=== PATIENT | male | born 1985 | race Caucasian/White ===

== ENCOUNTER 2020-01-29 22:08 | Inpatient (IN) | payer BC, OTHER ==
[2020-01-29] MEDS ORDERED: SODIUM CHLORIDE IV ONE (22:45)
--- NOTE | 2020-01-29 22:48 | PDOC ---
History of Present Illness - General Chief Complaint: Pain Stated Complaint: ABD PAIN Time Seen by Provider: 01/29/20 22:36 History Source: Patient Exam Limitations: No Limitations - History of Present Illness Initial Comments: 01/29/20 22:56 34y M with no significant PMH presenting to ED with complaints of LLQ abdominal pain and fever that started today at 5am. Pt states the pain is constant but there is intermittent stabbing sensation. It does not radiate but he is now feel ing some dull aches in the RLQ. He went to urgent care and was told he might have diverticulitis. He denies diarrhea, n/v, cough, congestion, back pain, hematuria, testicular pain, testicular swelling, sick contacts, abdominal surgeries, distension. He took Advil for the fever but it did not help with the pain PMD: PMH: none PSH: none Meds: none Allergies: Bactrim Social: smokes 1/2ppd, occasional alcohol use Past History - Past Medical History Allergies/Adverse Reactions: Allergies Allergy/AdvReac Type Severity Reaction Status Date / Time sulfamethoxazole AdvReac Verified 01/30/20 01:18 [From Bactrim] trimethoprim [From Bactrim] AdvReac Verified 01/30/20 01:18 Home Medications: Ambulatory Orders Albuterol Sulfate Inhaler - [Ventolin HFA Inhaler -] 1 - 2 inh PO Q4H PRN #1 inhaler 10/06/14 Guaifenesin AC [Robitussin AC] 10 ml PO Q8H PRN #4 oz 10/06/14 Loratadine [Claritin -] 10 mg PO DAILY 10/06/14 Methylprednisolone [Medrol Dose Lei] 4 mg PO ASDIR #21 tablet 10/06/14 COPD: No - Psycho Social/Smoking Cessation Hx Smoking History: Current every day smoker Have you smoked in the past 12 months: Yes Number of Cigarettes Smoked Daily: 10 Information on smoking cessation initiated: No Hx Alcohol Use: No Drug/Substance Use Hx: No Review of Systems - Review of Systems Constitutional: Yes: Chills, Fever HEENTM: No: Symptoms Reported Respiratory: No: Symptoms reported Cardiac (ROS): No: Symptoms Reported ABD/GI: Yes: See HPI : No: Symptoms Reported Musculoskeletal: No: Symptoms Reported Integumentary: No: Symptoms Reported Neurological: No: Symptoms reported *Physical Exam - Vital Signs Last Vital Signs Temp Pulse Resp BP Pulse Ox 102.0 F H 141 H 22 H 150/72 98 01/29/20 22:25 01/29/20 22:25 01/29/20 22:25 01/29/20 22:25 01/29/20 22:25 - Physical Exam General Appearance: Yes: Appropriately Dressed, Obese. No: Apparent Distress HEENT: positive: EOMI, ROMAIN Neck: positive: Trachea midline, Supple Respiratory/Chest: positive: Lungs Clear, Normal Breath Sounds. negative: Crackles, Rales, Rhonchi, Stridor, Wheezing Cardiovascular: positive: Regular Rhythm, Regular Rate, S1, S2. negative: Edema, JVD, Murmur Vascular Pulses: Dorsalis-Pedis (R): 2+, Doralis-Pedis (L): 2+ Gastrointestinal/Abdominal: positive: Normal Bowel Sounds, Soft, Rebound, Tenderness (LLQ). negative: Protuberent, Distended, Guarding Male Genitalia: positive: normal genitalia. negative: testicular tenderness, testicular mass Musculoskeletal: negative: CVA Tenderness Extremity: positive: Normal Capillary Refill Integumentary: positive: Normal Color, Dry, Warm Neurologic: positive: community leader II-XII NML intact, Fully Oriented, Alert, Normal Mood/Affect, Normal Response, Motor Strength 5/ ED Treatment Course - LABORATORY CBC & Chemistry Diagram: 01/29/20 23:03 01/29/20 23:03 - RADIOLOGY Radiology Studies Ordered: Category Date Time Status CHEST X-RAY PORTABLE* [RAD] Stat Radiology 01/29/20 22:45 Ordered Medical Decision Making - Medical Decision Making 01/30/20 01:18 34y M presenting to ED for abdominal pain and fever. tachycardic and febrile. llq tender. ddx includes colitis, diverticulitis, appendicitis, abscess, torsion, epididym itis/orchitis sepsis w/u, lipase, ekg, cxr, CTAP fluids, ofirmev. labs show leukocytosis with shift. normal chemistries. CTAP: Lung bases are clear. The visualized cardiac chambers are normal size and configuration. Normal liver, gallbladder, pancreas, spleen, adrenal glands and kidneys. The stomach and small bowel are normal. There is moderate focal inflammation of the sigmoid colon with associated diverticulosis, consistent with acute diverticulitis. No bowel obstruction, abscess or free air. There is no aortic aneurysm. There is no significant retroperitoneal lymphadenopathy. Tiny fat-containing umbilical hernia is noted. The appendix is normal. The urinary bladder and prostate gland are normal. No pelvic free fluid is identified. There is no significant pelvic lymphadenopathy. will give zosyn and flagyl. given systemic symptoms, will admit for diverticulitis. Discharge - Discharge Information Problems reviewed: Yes Clinical Impression/Diagnosis: Diverticulitis Fever Qualifiers: Fever type: unspecified Qualified Code(s): R50.9 - Fever, unspecified Condition: Stable - Admission Yes - Follow up/Referral Referrals: Garth Bansal MD [Primary Care Provider] - - Patient Discharge Instructions - Post Discharge Activity
[2020-01-29] MEDS ORDERED: ACETAMINOPHEN 1000 MG/100 ML VIAL (NON FORMULARY) IVPB ONE (22:49)
[2020-01-29] MEDS ORDERED: ACETAMINOPHEN INJECTION 100 ML IVPB ONE (23:13)
[2020-01-29] MEDS ORDERED: PIPERACILLIN/TAZOB 3.375 GM 3.375 GM in DEXTROSE 5%-WATER - 50 ML IVPB ONE (23:24)
[2020-01-29 23:27] LABS: BASO % 0.4 % (0-2.0); EOS % 0.2 % (0-4.5); HEMOGLOBIN 16.3 GM/dL (11.7-16.9); LYMPH % 8.6 % (8-40); MCHC 33.2 g/dl (32.0-35.9); MEAN CELL VOLUME 90.2 fl (80-96); MEAN PLT VOLUME 7.8 fl (7.5-11.1); MONO % 6.9 % (3.8-10.2); NEUT % 83.9 % (42.8-82.8); PLATELET COUNT 431 K/MM3 (134-434); RBC 5.44 M/mm3 (4.00-5.60); RDW 13.4 % (11.9-15.9); WHITE BLOOD COUNT 18.5 K/mm3 (4.0-10.0)
[2020-01-29 23:33] LABS: INR 1.25 (0.83-1.09); PROTHROMBIN TIME (PATIENT) 14.8 SEC (9.7-13.0)
[2020-01-29 23:36] LABS: ACTIVATED PTT 35.2 SECONDS (25.2-36.5)
[2020-01-29 23:52] LABS: ALBUMIN 3.8 g/dl (3.4-5.0); BILIRUBIN,TOTAL 0.7 mg/dL (0.2-1); BLOOD UREA NITROGEN 12.6 mg/dL (7-18); CALCIUM 8.7 mg/dL (8.5-10.1); POTASSIUM 3.9 mmol/L (3.5-5.1); TOT PROT 7.4 g/dl (6.4-8.2)
--- NOTE | 2020-01-30 00:40 | PDOC ---
Documentation entered by Reena Almendarez SCRIBE, acting as scribe for Bella Guardado MD. Bella Guardado MD: This documentation has been prepared by the Erickson frausto Brenda, SCRIBE, under my direction and personally reviewed by me in its entirety. I confirm that the documentation accurately reflects all work, treatment, procedures, and medical decision making performed by me. Attending Attestation - Resident Resident Name: Amairani Zimmerman - ED Attending Attestation I have performed the following: I have examined & evaluated the patient, The case was reviewed & discussed with the resident, I agree w/resident's findings & plan, Exceptions are as noted - HPI HPI: 01/30/20 00:39 34-year-old male who states he has no significant past medical history presents with fever and left lower quadrant pain He denied any nausea or vomiting - Physicial Exam PE: 01/30/20 00:40 Well-nourished well-developed 34-year-old male presents with left lower quadrant pain head ncat neck supple lungs cta b/l cvs [id number] abd LLQ tenderness+++ skin warm and dry no cva tenderness neuro axox3,ambulatory - Medical Decision Making 01/30/20 00:46 ct scan abd/pel c/w acute diverticulitis imp diverticuitis admit for IV antibiotics 01/30/20 01:58
[2020-01-30 00:59] LABS: VENOUS PC02 28.4 mmHg (38-52); VENOUS PH 7.49 (7.31-7.41)
[2020-01-30] MEDS ORDERED: PIPERACILLIN/TAZOB 3.375 GM 3.375 GM/50 ML BAG IVPB ONE (02:08)
[2020-01-30] MEDS ORDERED: morphine CARPU-JECT 4 MG/1 ML DISP.SYRIN IVPUSH ONE (02:49)
[2020-01-30] MEDS ORDERED: morphine SULFATE 4 MG/ML VIAL ONE (02:58)
--- NOTE | 2020-01-30 03:45 | HP ---
CHIEF COMPLAINT: abdominal pain PCP: Dr. Weeks HISTORY OF PRESENT ILLNESS: This is a 34y/o M with no significant PMH presenting to the ED with complaints of LLQ abdominal pain and fever that started today at 5am. Pt states the pain is constant but there is intermittent stabbing sensa tion. It does not radiate but he is now feeling some dull aches in the LLQ. He initially attributed to muscle cramps from constipation and went to work. However, once he got to work the pain became unbearable prompting him to go an urgent care center. They told him to go to the ER and told him he may have an enflamed colon requiring cat scan. He denies diarrhea, n/v, cough, congestion, back pain, hematuria, testicular pain, testicular swelling, sick contacts, abdominal surgeries, distension, change in stool color, and no SOB. He took Advil for the fever but it did not help with the pain. ER course was notable for: (1) VBG- 7.49, 21 HCO3, 98%, CO2 28 (2) wbc- 18.5, 102 degree temp, HR-141 (3) CTAP: Lung bases are clear. The visualized cardiac chambers are normal size and configuration. Normal liver, gallbladder, pancreas, spleen, adrenal glands and kidneys. The stomach and small bowel are normal. There is moderate focal inflammation of the sigmoid colon with associated diverticulosis, consistent with acute diverticulitis. No bowel obstruction, abscess or free air. There is no aortic aneurysm. There is no significant retroperitoneal lymphadenopathy. Tiny fat-containing umbilical hernia is noted. The appendix is normal. The urinary bladder and prostate gland are normal. No pelvic free fluid is identified. There is no significant pelvic lymphadenopathy. Recent Travel: denies PAST SURGICAL HISTORY: sinus surgery, Social History: Smokin/2 ppd X 20 yrs Alcohol:occasional Drugs:denies Allergies sulfamethoxazole [From Bactrim] Adverse Reaction (Verified 01/30/20 01:18) trimethoprim [From Bactrim] Adverse Reaction (Verified 01/30/20 01:18) HOME MEDICATIONS: Home Medications Medication Instructions Recorded Albuterol Sulfate Inhaler - 1 - 2 inh PO Q4H PRN #1 inhaler 10/06/14 [Ventolin HFA Inhaler -] Guaifenesin AC [Robitussin AC] 10 ml PO Q8H PRN #4 oz 11/16/14 Loratadine [Claritin -] 10 mg PO DAILY 10/06/14 Methylprednisolone [Medrol Dose 4 mg PO ASDIR #21 tablet 10/06/14 Lei] REVIEW OF SYSTEMS Negative except above. PHYSICAL EXAMINATION Vital Signs - 24 hr 01/29/20 01/30/20 22:25 03:18 Temperature 102.0 F H 99.5 F Pulse Rate 141 H Pulse Rate [ 96 H Left] Respiratory 22 H 20 Rate Blood Pressure 150/72 Blood Pressure 95/53 L [Left] O2 Sat by Pulse 98 98 Oximetry (%) GENERAL: Awake, alert, and fully oriented, in no acute distress. LUNGS: Breath sounds equal, clear to auscultation bilaterally. No wheezes, and no crackles. HEART: Regular rate and rhythm, normal S1 and S2 without murmur, rub or gallop. ABDOMEN: Soft, diffusely tender, non-distended, normoactive bowel sounds, no guarding, no rebound, no masses. LOWER EXTREMITIES: 2+ pulses, warm, well-perfused. No calf tenderness. No peripheral edema. NEUROLOGICAL: Cranial nerves II-XII intact. Normal speech. Normal gait. Laboratory Results - last 24 hr 01/29/20 01/29/20 01/29/20 23:03 23:03 23:03 WBC 18.5 H RBC 5.44 Hgb 16.3 Hct 49.0 MCV 90.2 MCH 30.0 MCHC 33.2 RDW 13.4 Plt Count 431 MPV 7.8 Absolute Neuts (auto) 15.5 H Neutrophils % 83.9 H Lymphocytes % 8.6 Monocytes % 6.9 Eosinophils % 0.2 Basophils % 0.4 Nucleated RBC % 0 PT with INR 14.80 H INR 1.25 H PTT (Actin FS) 35.2 VBG pH POC VBG pCO2 POC VBG pO2 VBG HCO3 VBG O2 Sat ([place]) VBG Base Excess Sodium 137 Potassium 3.9 Chloride 102 Carbon Dioxide 26 Anion Gap 9 BUN 12.6 Creatinine 1.0 Est GFR (CKD-EPI)AfAm 114.11 Est GFR (CKD-EPI)NonAf 98.45 Random Glucose 101 Lactic Acid Calcium 8.7 Total Bilirubin 0.7 AST 15 ALT 37 Alkaline Phosphatase 94 Total Protein 7.4 Albumin 3.8 Lipase 169 01/29/20 01/30/20 23:03 00:37 WBC RBC Hgb Hct MCV MCH MCHC RDW Plt Count MPV Absolute Neuts (auto) Neutrophils % Lymphocytes % Monocytes % Eosinophils % Basophils % Nucleated RBC % PT with INR INR PTT (Actin FS) VBG pH 7.49 H POC VBG pCO2 28.4 L POC VBG pO2 177 H VBG HCO3 21.6 L VBG O2 Sat ([place]) 98.4 H VBG Base Excess -0.2 Sodium Potassium Chloride Carbon Dioxide Anion Gap BUN Creatinine Est GFR (CKD-EPI)AfAm Est GFR (CKD-EPI)NonAf Random Glucose Lactic Acid 1.0 Calcium Total Bilirubin AST ALT Alkaline Phosphatase Total Protein Albumin Lipase ASSESSMENT/PLAN: This is a 34y/o M with no significant PMH presenting to the ED with complaints of LLQ abdominal pain and fever that started today at 5am. Pt states the pain is constant but there is intermittent stabbing sensation. It does not radiate but he is now feeling some dull aches in the LLQ. #Acute uncomplicated Diverticulitis - CT showing CTAP: moderate focal inflammation of the sigmoid colon with associated diverticulosis, consistent with acute diverticulitis. No bowel obstruction, abscess or free air. There is no aortic aneurysm. There is no significant retroperitoneal lymphadenopathy. Tiny fat-containing umbilical hernia is noted. - zosyn and flagyl given in ED. - sepsis given high fever 102 with tachycardia to 141, 18 wbc - will switch to levaquin 750 daily and flagyl 500 Q8 - NPO, IV NS 100/hr - LA- 1.0 - Blood cultures ordered DVT ppx: 40 Lovenox daily Visit type - Emergency Visit Emergency Visit: Yes ED Registration Date: 01/30/20 Care time: The patient presented to the Emergency Department on the above date and was hospitalized for further evaluation of their emergent condition. - New Patient This patient is new to me today: Yes Date on this admission: 01/31/20 - Critical Care Critical Care patient: No ATTENDING PHYSICIAN STATEMENT I saw and evaluated the patient. I reviewed the resident's note and discussed the case with the resident. I agree with the resident's findings and plan as documented. SUBJECTIVE: OBJECTIVE: ASSESSMENT AND PLAN:
--- NOTE | 2020-01-30 04:40 | PN ---
Teaching Attending Note Name of Resident: Todd Lou ATTENDING PHYSICIAN STATEMENT I saw and evaluated the patient. I reviewed the resident's note and discussed the case with the resident. I agree with the resident's findings and plan as documented. SUBJECTIVE: 34y man Smoker With no significant medical history presents complaining of left lower quadrant abdominal pain that started on 01/29/2020 at 5 AM. Patient's constant with intermittent stabbing sensation. Patient went to urgent care was referred to the ER for further evaluation. Denied any cough diarrhea or sick contacts. No history of abdominal surgeries. OBJECTIVE: Last Vital Signs Temp Pulse Resp BP Pulse Ox 99.5 F 96 H 20 95/53 L 98 01/30/20 03:18 01/30/20 03:18 01/30/20 03:18 01/30/20 03:18 01/30/20 03:18 Physical exam showed an obese male not in acute distress, nontoxic-appearing head was atraumatic, neck was supple with no JVD. Cardiovascular exam was S1, S2 with regular rate and rhythm. Abdomen was tender in left lower quadrant. Bowel sounds were decreased. Lower extremities with no pedal edema. Abnormal Lab Results 01/29/20 01/29/20 01/30/20 23:03 23:03 00:37 WBC 18.5 H Absolute Neuts (auto) 15.5 H Neutrophils % 83.9 H PT with INR 14.80 H INR 1.25 H VBG pH 7.49 H POC VBG pCO2 28.4 L POC VBG pO2 177 H VBG HCO3 21.6 L VBG O2 Sat ([place]) 98.4 H Chest x-ray reviewed, appears unremarkable Abdomen and pelvis CT showed diverticulitis with no free air, abscess formation ASSESSMENT AND PLAN: 34-year-old male with sepsis secondary to diverticulitis. Leukocytosis, tachycardia. Lactate was noted to be normal. MedSurg Blood cultures x2 IV Fluid hydration Continue with Zosyn 3.375 IV every 6 hours Infectious disease consult Lactate Counseled on high-fiber diet Advise smoking cessation dietary consult for weight loss Would benefit from colonoscopy 6 weeks after completion of treatment with antibiotics DVT prophylaxis with heparin subcutaneously
[2020-01-30] MEDS ORDERED: PIPERACILLIN/TAZOB 3.375 GM 3.375 GM in DEXTROSE 5%-WATER - 50 ML IVPB SCH ×2 (05:45→10:00)
[2020-01-30] MEDS: SODIUM CHLORIDE 1,000 ML IV SCH ×3 (08:33→20:56)
[2020-01-30] MEDS ORDERED: DEXTROSE 5%-WATER - 50 ML IVPB ONE ×3 (09:08→20:46)
[2020-01-30] MEDS ORDERED: PIPERACILLIN/TAZOBACTAM 3.375 GM VIAL IVPB ONE ×3 (09:08→20:45)
[2020-01-30] MEDS: PIPERACILLIN/TAZOB 3.375 GM 3.375 GM in DEXTROSE 5%-WATER - 50 ML IVPB SCH ×3 (09:38→20:56)
[2020-01-30] MEDS: ENOXAPARIN NA (PORCINE) 40 MG/0.4 ML DISP.SYRIN SQ SCH (09:51)
[2020-01-30] MEDS: MORPHINE SULFATE 2 MG/ML VIAL IVPUSH PRN ×2 (09:58→16:53)
--- NOTE | 2020-01-30 10:14 | EKG ---
Test Reason : Blood Pressure : / mmHG Vent. Rate : 117 BPM Atrial Rate : 117 BPM P-R Int : 138 ms QRS Dur : 084 ms QT Int : 312 ms P-R-T Axes : 064 062 018 degrees QTc Int : 435 ms SINUS TACHYCARDIA OTHERWISE NORMAL ECG NO PREVIOUS ECGS AVAILABLE Confirmed by Kelby Sutton ([id number]) on 01/30/2020 10:13:32 AM Referred By: Confirmed By:Kelby Sutton
[2020-01-30 10:28] LABS: HEMATOCRIT 43.1 % (35.4-49); HEMOGLOBIN 14.6 GM/dL (11.7-16.9); MCH 30.7 pg (25.7-33.7); MCHC 33.9 g/dl (32.0-35.9); MEAN CELL VOLUME 90.5 fl (80-96); MEAN PLT VOLUME 7.9 fl (7.5-11.1); PLATELET COUNT 345 K/MM3 (134-434); RBC 4.76 M/mm3 (4.00-5.60); RDW 13.2 % (11.9-15.9); WHITE BLOOD COUNT 15.8 K/mm3 (4.0-10.0)
[2020-01-30 11:05] LABS: ALBUMIN 3.2 g/dl (3.4-5.0); BILIRUBIN,TOTAL 0.8 mg/dL (0.2-1); BLOOD UREA NITROGEN 9.6 mg/dL (7-18); CALCIUM 8.4 mg/dL (8.5-10.1); CREATININE 0.9 mg/dL (0.55-1.3); PHOSPHOROUS 1.7 mg/dL (2.5-4.9); POTASSIUM 4.3 mmol/L (3.5-5.1); TOT PROT 6.5 g/dl (6.4-8.2)
[2020-01-30 13:06] VITALS: BMI 32.8
--- NOTE | 2020-01-30 13:39 | PN ---
Progress Note, Physician Chief Complaint: pain LLQ, is slightly better, is still hurting, - Current Medication List Current Medications: Active Medications Enoxaparin Sodium (Lovenox -) 40 mg SQ DAILY ERVIN Last Admin: 01/30/20 09:51 Dose: 40 mg Documented by: Sodium Chloride (Normal Saline -) 1,000 mls @ 100 mls/hr IV ASDIR ERVIN Last Admin: 01/30/20 09:38 Dose: 100 mls/hr Documented by: Piperacillin Sod/Tazobactam (Sod 3.375 gm/ Dextrose) 50 mls @ 100 mls/hr IVPB Q6H-IV ERVIN; Protocol Stop: 01/30/20 21:29 Last Admin: 01/30/20 09:38 Dose: 100 mls/hr Documented by: Morphine Sulfate (Morphine Sulfate) 2 mg IVPUSH Q4H PRN PRN Reason: PAIN LEVEL 1-5 Last Admin: 01/30/20 09:58 Dose: 2 mg Documented by: - Objective Vital Signs: Vital Signs Temperature 99.1 F 01/30/20 13:14 Pulse Rate 112 H 01/30/20 13:14 Respiratory Rate 01/30/20 13:21 Blood Pressure 131/88 01/30/20 13:14 O2 Sat by Pulse Oximetry (%) 98 01/30/20 13:21 Constitutional: Yes: Well Nourished Eyes: Yes: Conjunctiva Clear, EOM Intact HENT: Yes: Atraumatic, Normocephalic Neck: Yes: Supple, Trachea Midline Cardiovascular: Yes: Regular Rate and Rhythm Respiratory: Yes: Regular, CTA Bilaterally Gastrointestinal: Yes: Normal Bowel Sounds, Soft, Other (LLQ tenderness,) Extremities: Yes: WNL Peripheral Pulses WNL: No ...Motor Strength: WNL Psychiatric: Yes: WNL Labs: CBC, BMP 01/30/20 09:25 01/30/20 09:25 INR, PTT INR 1.25 (0.83-1.09) H 01/29/20 23:03 - ....Imaging Cat Scan: Report Reviewed Impression/Plan Impression/Plan: This is a 34y/o M with no significant PMH presenting to the ED with complaints of LLQ abdominal pain and fever that started today at 5am. Pt states the pain is constant but there is intermittent stabbing sensation. It does not radiate but he is now feeling some dull aches in the LLQ. #Acute uncomplicated Diverticulitis - CT showing CTAP: moderate focal inflammation of the sigmoid colon with associated diverticulosis, consistent with acute diverticulitis. No bowel obstruction, abscess or free air. There is no aortic aneurysm. There is no significant retroperitoneal lymphadenopathy. Tiny fat-containing umbilical hernia is noted. contiue zosyn, \spoke with ID, and will continue zosyn for now, - sepsis given high fever 102 with tachycardia to 141, 18 wbc - NPO, IV NS 100/hr - LA- 1.0 sbc slightly improving, - called GI consult, DVT ppx: 40 Lovenox daily Visit type - Emergency Visit Emergency Visit: No - New Patient This patient is new to me today: Yes Date on this admission: 01/30/20 - Critical Care Critical Care patient: No - Discharge Referral Referred to [facility] Med P.C.: No
--- NOTE | 2020-01-30 14:15 | PN ---
Progress Note (short form) - Note Progress Note: ID consult dictated imp/reccd 34 yo man with acute diverticulitis no recent travel no recent antibiotics acute onset of abdominal pain LLQ with fever and sweats still with some LLQ pain on exam strong family history of diverticulitis no history of colon cancer +history of lung cancer and breast cancer +cigarette use continue zosyn GI evaluation smoking cessation Problem List - Problems (1) Diverticulitis Code(s): K57.92 - DVTRCLI OF INTEST, PART UNSP, W/O PERF OR ABSCESS W/O BLEED (2) Smoker Code(s): F17.200 - NICOTINE DEPENDENCE, UNSPECIFIED, UNCOMPLICATED
[2020-01-30] MEDS ORDERED: PNEUMOC 13-VAL CONJ-DIP CRM/PF 0.5 ML DISP.SYRIN IM ONE (15:28)
--- NOTE | 2020-01-30 16:08 | CON.GI ---
Consult Consult Specialty:: Gastroenterology Reason for Consultation:: Abdominal pain - History of Present Illness History of Present Illness: 34yo male with no prior medical history presenting with LLQ pain and fever x 1 day. Pt reported developing worsening LLQ pain yesterday morning, prompting urgent care evaluation. Pt also noted fever and chills therefore advised ED evaluation. Denies prior similar episodes and was feeling well prior. Reports regular formed daily bm, no blood. Denies nausea/vomiting. Denies NSAID use. No prior endoscopy. CT abd/pelvis was performed revealing acute diverticulitis at descending colon/sigmoid colon. Pt states he has multiple family members with episodes of diverticulitis including his mother, grandmother (paternal), and brother with episodes starting in his early 30s. No known family h/o colon ca. - History Source History Provided By: Patient, Medical Record - Alcohol/Substance Use Hx Alcohol Use: No - Smoking History Smoking history: Current every day smoker Have you smoked in the past 12 months: Yes Aproximately how many cigarettes per day: 10 Home Medications - Allergies Allergies/Adverse Reactions: Allergies Allergy/AdvReac Type Severity Reaction Status Date / Time sulfamethoxazole AdvReac Verified 01/30/20 01:18 [From Bactrim] trimethoprim [From Bactrim] AdvReac Verified 01/30/20 01:18 - Home Medications Home Medications: Ambulatory Orders Albuterol Sulfate Inhaler - [Ventolin HFA Inhaler -] 1 - 2 inh PO Q4H PRN #1 i nhaler 10/06/14 Review of Systems - Review of Systems Constitutional: reports: Chills Cardiovascular: reports: No Symptoms Respiratory: reports: No Symptoms Gastrointestinal: reports: Abdominal Pain Musculoskeletal: reports: No Symptoms Physical Exam-GI Vital Signs: Vital Signs Temperature 99.1 F 01/30/20 13:14 Pulse Rate 112 H 01/30/20 13:14 Respiratory Rate 20 01/30/20 13:21 Blood Pressure 131/88 01/30/20 13:14 O2 Sat by Pulse Oximetry (%) 98 01/30/20 13:21 Constitutional: Yes: Well Nourished, No Distress, Calm Cardiovascular: Yes: WNL, Regular Rate and Rhythm Respiratory: Yes: WNL, Regular, CTA Bilaterally ...Palpate: Yes: Other (Abd soft, tender on mild palpation at LLQ, non distended, slight guarding, no rebound, or rigidity) Labs: CBC, BMP 01/30/20 09:25 01/30/20 09:25 INR, PTT INR 1.25 (0.83-1.09) H 01/29/20 23:03 Imaging - Results Cat Scan: Report Reviewed, Image Reviewed Problem List - Problems (1) Diverticulitis Assessment/Plan: 34yo male with no prior medical history presenting with LLQ pain and fever x [address] abd/pelvis revealing acute uncomplicated diverticulitis at descending colon/sigmoid colon. First episode. Mild improvement noted today. -Recommend continue conservative measures, IVF, NPO for now -Continue IV antibiotics -Follow up cultures -If pt does not have continued improvement, or if persisting fever or wcc would recommend repeat contrast enhanced CT abd/pelvis r/o progression/fluid collections/abscess -Otherwise recommend close outpatient GI follow up for colonoscopy within 6 weeks. Code(s): K57.92 - DVTRCLI OF INTEST, PART UNSP, W/O PERF OR ABSCESS W/O BLEED
--- NOTE | 2020-01-30 20:25 | CONS ---
DATE OF CONSULTATION: DATE OF DICTATION: 01/30/2020 INFECTIOUS DISEASE CONSULTATION HISTORY OF PRESENT ILLNESS: This is a 34-year-old man admitted with acute onset of abdominal pain that started yesterday morning at 5 a.m. He developed left lower quadrant pain. He went to work, the pain worsened. He went home. He had fevers and chills. His urged him to go to the urgent care where they advised him ER evaluation. He was found to have acute diverticulitis. He denies diarrhea, nausea, vomiting. He does not take any medications. There is no history of any travel. He does not have any cough. He notes sweats but no chills with the fever. He has a strong family history of diverticulitis in his brother who is 37 who has already had several episodes with a perforation and his mother and grandmother. There is no family history of colon cancer. There is the lung cancer and breast cancer. He is followed by Dr. Bansal at [facility]. ALLERGIES: He is allergic to BACTRIM. PAST MEDICAL HISTORY: Notable for sinus surgery. At that time, he received BACTRIM as one of the medications they used to treat him, and he developed a high fever and rash. SOCIAL HISTORY: He smokes a half pack per day for 20 years, social alcohol. He is . 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 He is and he has 3 children. MEDICATION: His medications at home, he uses an inhaler p.r.n. REVIEW OF SYSTEMS: As per HPI. PHYSICAL EXAMINATION: Vital Signs: His T-max in the ER was 102, current temperature is 99.5, pulse of 118, blood pressure 128/75, respiratory rate 20, saturating 98%. HEENT: Normocephalic. Eyes are anicteric. Neck: Supple. Lungs: Clear to auscultation. Heart: Regular rate and rhythm. Abdomen: Soft. He has got positive bowel sounds. He has got left lower quadrant mid lower abdomen discomfort to palpation. Skin: He has no rashes. Extremities: Without edema. LABORATORY: His labs are notable for an admitting white count of 18.5, today is 15.8, hemoglobin is 14.6. Chemistries are notable for BUN and creatinine of 9 and 0.9. Blood cultures are pending. CAT scan reveals an acute sigmoid diverticulitis within descending colon as well as the sigmoid. There is no evidence at this time of any perforation. His chest x-ray is clear. IMPRESSION: In summary, this is a 34-year-old man with acute diverticulitis. Would continue piperacillin/tazobactam and intravenous fluids at this time. He is currently n.p.o. I would suggest a gastrointestinal evaluation and close clinical followup. Case was discussed with the hospitalist. NINOSKA BEAUCHAMP M.D. [id number]
[2020-01-31] MEDS ORDERED: DEXTROSE 5%-WATER - 50 ML IVPB ONE ×4 (01:51→21:04)
[2020-01-31] MEDS ORDERED: PIPERACILLIN/TAZOBACTAM 3.375 GM VIAL IVPB ONE ×4 (01:51→21:04)
[2020-01-31] MEDS: PIPERACILLIN/TAZOB 3.375 GM 3.375 GM in DEXTROSE 5%-WATER - 50 ML IVPB SCH ×4 (02:03→22:00)
[2020-01-31] MEDS: SODIUM CHLORIDE 1,000 ML IV SCH ×2 (07:15→15:06)
[2020-01-31 07:35] LABS: BASO % 0.6 % (0-2.0); HEMATOCRIT 40.4 % (35.4-49); HEMOGLOBIN 13.6 GM/dL (11.7-16.9); LYMPH % 13.8 % (8-40); MCH 30.3 pg (25.7-33.7); MCHC 33.6 g/dl (32.0-35.9); MEAN PLT VOLUME 7.6 fl (7.5-11.1); MONO % 8.8 % (3.8-10.2); NEUT % 75.8 % (42.8-82.8); PLATELET COUNT 297 K/MM3 (134-434); RBC 4.49 M/mm3 (4.00-5.60); RDW 12.9 % (11.9-15.9); WHITE BLOOD COUNT 13.1 K/mm3 (4.0-10.0)
[2020-01-31 08:14] LABS: ALBUMIN 2.9 g/dl (3.4-5.0); BLOOD UREA NITROGEN 9.6 mg/dL (7-18); CALCIUM 7.8 mg/dL (8.5-10.1); CREATININE 0.8 mg/dL (0.55-1.3); MAGNESIUM 1.8 mg/dL (1.8-2.4); POTASSIUM 3.8 mmol/L (3.5-5.1); TOT PROT 6.1 g/dl (6.4-8.2)
[2020-01-31 09:33] LABS: ERYTHROCYTE SEDIMENTATION RATE 36 mm/hr (0-10)
[2020-01-31] MEDS ORDERED: FLU VACCINE QUAD 60 MCG/0.5 ML (MDV 19-20) IM ONE (10:00)
[2020-01-31] MEDS ORDERED: PNEUMOCOCCAL 23 VACCINE 0.5 ML VIAL IM ONE (10:00)
[2020-01-31] MEDS: ENOXAPARIN NA (PORCINE) 40 MG/0.4 ML DISP.SYRIN SQ SCH (10:20)
--- NOTE | 2020-01-31 14:14 | PN.GI ---
GI Progress Note Subjective: No acute events Abdominal pain improved - Objective Vital Signs: Vital Signs Temperature 98.6 F 01/31/20 13:22 Pulse Rate 105 H 01/31/20 13:22 Respiratory Rate 20 01/31/20 13:22 Blood Pressure 123/73 01/31/20 13:22 O2 Sat by Pulse Oximetry (%) 98 01/30/20 21:00 Constitutional: Calm Eyes: No: Sclera Icterus Cardiovascular: Yes: Regular Rate and Rhythm Respiratory: Yes: CTA Bilaterally Gastrointestinal Inspection: No: Distention ...Auscultate: Yes: Normoactive Bowel Sounds ...Palpate: Yes: Tenderness (TTP LLQ. Patient states improved from previous evaluations). No: Guarding ...Percussion: No: Tympanitic Edema: No (No LE edema) Neurological: Yes: Alert Labs: CBC, BMP 01/31/20 06:20 01/31/20 06:20 INR, PTT INR 1.25 (0.83-1.09) H 01/29/20 23:03 Problem List - Problems (1) Diverticulitis Assessment/Plan: Uncomplicated sigmoid diverticulitis: Clinically improved Continue IV Abx per ID If continued improvement advance to clear liquids in AM AM Labs Code(s): K57.92 - DVTRCLI OF INTEST, PART UNSP, W/O PERF OR ABSCESS W/O BLEED
--- NOTE | 2020-01-31 16:36 | PN ---
Physical Exam: SUBJECTIVE: Patient seen and examined at beside, still endorses LLQ pain but less severe than prior, on IV Zosyn, will cont. and advance diet as tolerated, VSS. OBJECTIVE: Vital Signs Period Temp Pulse Resp BP Sys/Gold Pulse Ox Last 24 Hr 98.6 F-99.5 F 105-118 17-20 118-133/71-75 98-98 GENERAL: The patient is awake, alert, and fully oriented, in no acute distress. HEAD: Normal with no signs of trauma. EYES: PERRL, extraocular movements intact, sclera anicteric, conjunctiva clear. No ptosis. ENT: Ears normal, nares patent, oropharynx clear without exudates, moist mucous membranes. NECK: Trachea midline, full range of motion, supple. LUNGS: Breath sounds equal, clear to auscultation bilaterally, no wheezes, no crackles, no accessory muscle use. HEART: Regular rate and rhythm, S1, S2 without murmur, rub or gallop. ABDOMEN: Soft, LLQ pain no guarding, BS+, ND, no HSM, no CVA tenderness rebound, no hepatosplenomegaly, no masses. EXTREMITIES: 2+ pulses, warm, well-perfused, no edema. NEUROLOGICAL: Cranial nerves II through XII grossly intact. Normal speech, gait not observed. PSYCH: Normal mood, normal affect. SKIN: Warm, dry, normal turgor, no rashes or lesions noted Laboratory Results - last 24 hr 01/31/20 01/31/20 06:20 06:20 WBC 13.1 H RBC 4.49 Hgb 13.6 Hct 40.4 MCV 90.0 MCH 30.3 MCHC 33.6 RDW 12.9 Plt Count 297 MPV 7.6 Absolute Neuts (auto) 9.9 H Neutrophils % 75.8 Lymphocytes % 13.8 D Monocytes % 8.8 Eosinophils % 1.0 D Basophils % 0.6 Nucleated RBC % 0 ESR 36 H Sodium 137 Potassium 3.8 Chloride 104 Carbon Dioxide 25 Anion Gap 8 BUN 9.6 Creatinine 0.8 Est GFR (CKD-EPI)AfAm 136.03 Est GFR (CKD-EPI)NonAf 117.37 Random Glucose 76 Calcium 7.8 L Magnesium 1.8 Total Bilirubin 1.0 AST 13 L ALT 25 Alkaline Phosphatase 73 C-Reactive Protein 18.3 H Total Protein 6.1 L Albumin 2.9 L Active Medications Generic Name Dose Route Start Last Admin Trade Name Freq PRN Reason Stop Dose Admin Enoxaparin Sodium 40 mg 01/30/20 10:00 01/31/20 10:20 Lovenox - SQ 40 mg DAILY ERVIN Administration Piperacillin Sod/Tazobactam 50 mls @ 100 mls/hr 01/30/20 21:00 01/31/20 15:06 Sod 3.375 gm/ Dextrose IVPB 100 mls/hr Q6H ERVIN Administration Protocol Sodium Chloride 1,000 mls @ 125 mls/hr 01/31/20 12:57 01/31/20 15:06 Normal Saline - IV 125 mls/hr ASDIR ERVIN Administration Morphine Sulfate 2 mg 01/30/20 06:20 01/30/20 16:53 Morphine Sulfate IVPUSH 2 mg Q4H PRN Administration PAIN LEVEL 1-5 ASSESSMENT/PLAN: 34 M no significant PMHx, presents to the ED with complaints of LLQ abdominal pain and subjective fever/chills, found to have uncomplicated diverticulitis. Acute uncomplicated Diverticulitis cont. IV Zosyn, IVF, clear diet in AM as tolerated Pain control w/ Morphine ID consult GI consult Obesity BMI: 32 counseled on diet, exercise and weight loss Will send A1c, lipids, TSH DVT ppx: 40 Lovenox daily Med Surg Visit type - Emergency Visit Emergency Visit: Yes ED Registration Date: 01/30/20 Care time: The patient presented to the Emergency Department on the above date and was hospitalized for further evaluation of their emergent condition. - New Patient This patient is new to me today: Yes Date on this admission: 01/31/20 - Critical Care Critical Care patient: No - Discharge Referral Referred to [facility] Med P.C.: No
--- NOTE | 2020-01-31 18:32 | PN ---
Progress Note (short form) - Note Progress Note: feels much improved no pain meds overnight Vital Signs Period Temp Pulse Resp BP Sys/Gold Pulse Ox Last 24 Hr 98.1 F-99.3 F 90-112 17-20 118-133/68-75 98-98 cor-rrr lungs-clear abd much less pain, minimal LLQ discomfort ext no edema CBC, BMP 01/31/20 06:20 01/31/20 06:20 Microbiology 01/30/20 09:25 Blood - Peripheral Venous Blood Culture - Preliminary NO GROWTH OBTAINED AFTER 24 HOURS, INCUBATION TO CONTINUE FOR 4 DAYS. 01/29/20 23:03 Blood - Peripheral Venous Blood Culture - Preliminary NO GROWTH OBTAINED AFTER 24 HOURS, INCUBATION TO CONTINUE FOR 4 DAYS. imp/reccd 34 yo man with acute diverticulitis/leukocytosis still with some LLQ pain on exam strong family history of diverticulitis no history of colon cancer +history of lung cancer and breast cancer continue zosyn improving clinically
[2020-02-01] MEDS ORDERED: PIPERACILLIN/TAZOBACTAM 3.375 GM VIAL IVPB ONE ×2 (00:56→08:08)
[2020-02-01] MEDS ORDERED: DEXTROSE 5%-WATER - 50 ML IVPB ONE ×2 (00:56→08:09)
[2020-02-01] MEDS: PIPERACILLIN/TAZOB 3.375 GM 3.375 GM in DEXTROSE 5%-WATER - 50 ML IVPB SCH ×3 (02:17→14:14)
[2020-02-01 07:37] LABS: BASO % 0.5 % (0-2.0); EOS % 2.2 % (0-4.5); HEMATOCRIT 39.9 % (35.4-49); HEMOGLOBIN 13.7 GM/dL (11.7-16.9); LYMPH % 17.7 % (8-40); MCH 30.7 pg (25.7-33.7); MCHC 34.4 g/dl (32.0-35.9); MEAN CELL VOLUME 89.3 fl (80-96); MONO % 7.7 % (3.8-10.2); NEUT % 71.9 % (42.8-82.8); PLATELET COUNT 330 K/MM3 (134-434); RBC 4.47 M/mm3 (4.00-5.60); RDW 12.4 % (11.9-15.9)
[2020-02-01 08:07] LABS: BLOOD UREA NITROGEN 9.2 mg/dL (7-18); CALCIUM 8.5 mg/dL (8.5-10.1); CREATININE 0.8 mg/dL (0.55-1.3)
[2020-02-01 08:32] LABS: CHOLESTEROL 166 mg/dL (50-200); HDL CHOLESTEROL 27 mg/dL (40-60); LDL CHOLESTEROL (ONLY SJRH) 114 mg/dL (5-100); TRIGLYCERIDES 118 mg/dL (0-150)
[2020-02-01] MEDS: ENOXAPARIN NA (PORCINE) 40 MG/0.4 ML DISP.SYRIN SQ SCH (09:30)
[2020-02-01] MEDS: SODIUM CHLORIDE 1,000 ML IV SCH (09:33)
--- NOTE | 2020-02-01 10:26 | PN.GI ---
GI Progress Note Subjective: No acute events States feeling well - Objective Vital Signs: Vital Signs Temperature 98 F 02/01/20 06:19 Pulse Rate 83 02/01/20 06:19 Respiratory Rate 18 02/01/20 06:19 Blood Pressure 115/73 02/01/20 06:19 O2 Sat by Pulse Oximetry (%) 98 01/31/20 21:00 Constitutional: Calm Eyes: No: Sclera Icterus Cardiovascular: Yes: Regular Rate and Rhythm Respiratory: Yes: CTA Bilaterally Gastrointestinal Inspection: No: Distention ...Auscultate: Yes: Normoactive Bowel Sounds ...Palpate: Yes: Soft. No: Hepatomegaly, Splenomegaly, Tenderness Edema: No (No LE edema) Neurological: Yes: Alert Labs: CBC, BMP 02/01/20 06:20 02/01/20 06:20 INR, PTT INR 1.25 (0.83-1.09) H 01/29/20 23:03 Problem List - Problems (1) Diverticulitis Assessment/Plan: 1st episode acute uncomplicated sigmoid diverticulitis: Clinically much improved Advance diet Will need 10 days of abx including days receiving IV Abx as inpatient F/U in office in 1-2 weeks. Colonoscopy in 6-8 weeks. Code(s): K57.92 - DVTRCLI OF INTEST, PART UNSP, W/O PERF OR ABSCESS W/O BLEED
--- NOTE | 2020-02-01 10:33 | DS ---
Physical Exam: SUBJECTIVE: Patient seen and examined Patient was admitted for acute diverticulitis he is improved he has no symptoms. OBJECTIVE: Vital Signs Period Temp Pulse Resp BP Sys/Gold Pulse Ox Last 24 Hr 98 F-98.6 F 83-105 18-20 115-126/68-73 98 PHYSICAL EXAM GENERAL: The patient is awake, alert, and fully oriented, in no acute distress. HEAD: Normal with no signs of trauma. EYES: PERRL, extraocular movements intact, sclera anicteric, conjunctiva clear. ENT: Ears normal, nares patent, oropharynx clear without exudates, moist mucous membranes. NECK: Trachea midline, full range of motion, supple. LUNGS: Breath sounds equal, clear to auscultation bilaterally, no wheezes, no crackles, no accessory muscle use. HEART: Regular rate and rhythm, S1, S2 without murmur, rub or gallop. ABDOMEN: Soft, nontender, nondistended, normoactive bowel sounds, no guarding, no rebound, no hepatosplenomegaly, no masses. EXTREMITIES: 2+ pulses, warm, well-perfused, no edema. NEUROLOGICAL: Cranial nerves II through XII grossly intact. Normal speech, gait not observed. PSYCH: Normal mood, normal affect. SKIN: Warm, dry, normal turgor, no rashes or lesions noted. LABS Laboratory Results - last 24 hr 02/01/20 02/01/20 02/01/20 06:00 06:20 06:20 WBC 9.0 RBC 4.47 Hgb 13.7 Hct 39.9 MCV 89.3 MCH 30.7 MCHC 34.4 RDW 12.4 Plt Count 330 MPV 8.0 Absolute Neuts (auto) 6.5 Neutrophils % 71.9 Lymphocytes % 17.7 D Monocytes % 7.7 Eosinophils % 2.2 D Basophils % 0.5 Nucleated RBC % 0 Sodium 138 Potassium 4.0 Chloride 105 Carbon Dioxide 24 Anion Gap 10 BUN 9.2 Creatinine 0.8 Est GFR (CKD-EPI)AfAm 136.03 Est GFR (CKD-EPI)NonAf 117.37 Random Glucose 72 L Hemoglobin A1c % Calcium 8.5 Triglycerides 118 Cholesterol 166 Total LDL Cholesterol 114 H HDL Cholesterol 27 L TSH 3.22 02/01/20 06:20 WBC RBC Hgb Hct MCV MCH MCHC RDW Plt Count MPV Absolute Neuts (auto) Neutrophils % Lymphocytes % Monocytes % Eosinophils % Basophils % Nucleated RBC % Sodium Potassium Chloride Carbon Dioxide Anion Gap BUN Creatinine Est GFR (CKD-EPI)AfAm Est GFR (CKD-EPI)NonAf Random Glucose Hemoglobin A1c % 5.6 Calcium Triglycerides Cholesterol Total LDL Cholesterol HDL Cholesterol TSH HOSPITAL COURSE:This patient was admitted 3 days before with acute abdominal pain left lower quadrant was admitted to the hospital started on IV antibiotics. Patient improved on antibiotic he is on clear liquid diet he tolerated well no pain no fever no chills. He was seen by mechanical tech and he is going to have outpatient colonoscopy in 4 to 6 weeks. He will need 10 days of total a ntibiotic and I will discharge him on Levaquin 500 mg for 8 more days. He is going to follow-up with his primary care doctor and also mechanical tech. I already sent him instruction for diverticulitis which is going to follow. Date of Admission:01/30/20 Date of Discharge: 02/01/20 Minutes to complete discharge: 30 Discharge Summary Problems reviewed: Yes Reason For Visit: DIVERTICULITIS,LEUKOCYTOSIS,ABDOMINAL PAIN Current Active Problems Diverticulitis (Acute) Fever (Acute) Smoker (Acute) Condition: Improved - Instructions Diet, Activity, Other Instructions: Activity as tolerated. Advised patient to take low fiber diet until further notice and no seeds. Is going to follow-up with the primary care doctor next week and also mechanical tech for colonoscopy. Referrals: Juan J Maldonado DO [Staff Physician] - Garth Bansal MD [Primary Care Provider] - Disposition: HOME - Home Medications Comprehensive Discharge Medication List: Ambulatory Orders Albuterol Sulfate Inhaler - [Ventolin HFA Inhaler -] 1 - 2 inh PO Q4H PRN #1 inhaler 10/06/14 Levofloxacin [Levaquin] 500 mg PO DAILY #8 tablet 02/01/20 This patient is new to me today: Yes Date on this admission: 02/01/20 Emergency Visit: Yes ED Registration Date: 01/30/20 Care time: The patient presented to the Emergency Department on the above date and was hospitalized for further evaluation of their emergent condition. Critical Care patient: No - Discharge Referral Referred to [facility] Med P.C.: No
[2020-02-01 11:23] VITALS: PULSE 92
[2020-02-01 13:25] VITALS: BP 135/80; TEMP 98.6
== END 2020-02-01 15:23 | disposition home or self-care (01) | DRG 392 ==
LOC: JER 22:08 → JERBED 01-30 01:13 → J7W 01-30 06:27
PROVIDERS: ADMIT Internal Medicine; ATTEND Internal Medicine
DX: K57.92 Diverticulitis of intestine, part unspecified, without perforation or abscess without bleeding (principal); R50.9 Fever, unspecified; R00.0 Tachycardia, unspecified; D72.829 Elevated white blood cell count, unspecified; K57.90 Diverticulosis of intestine, part unspecified, without perforation or abscess without bleeding; F17.210 Nicotine dependence, cigarettes, uncomplicated; E66.9 Obesity, unspecified; Z68.32 Body mass index [BMI] 32.0-32.9, adult
CPT/HCPCS: 36415; 71045-TC-FY; 74177-TC; 80048; 80053; 80061; 82803; 83036; 83605; 83690; 83721; 83735; 84100; 84443; 85025; 85027; 85610; 85651; 85730; 86140; 86850; 86900; 86901; 87040; 90732; 93005; 93010; 99285-25; G0009; J0131; J7030; Q2036

== ENCOUNTER 2021-01-20 17:08 | Emergency (ER) | payer BC, OTHER ==
[2021-01-20 17:17] VITALS: TEMP 98.1; BMI 34.2
[2021-01-20] MEDS ORDERED: SODIUM CHLORIDE 1,000 ML IV STA (18:19)
[2021-01-20] MEDS ORDERED: ACETAMINOPHEN 1000 MG/100 ML VIAL (NON FORMULARY) IVPB ONE (18:22)
[2021-01-20] MEDS ORDERED: ACETAMINOPHEN INJECTION 100 ML IVPB ONE (18:46)
[2021-01-20 19:05] LABS: EOS % 1.8 % (0-4.5); HEMATOCRIT 48.9 % (35.4-49); HEMOGLOBIN 16.8 GM/dL (11.7-16.9); LYMPH % 26.2 % (8-40); MCH 31.3 pg (25.7-33.7); MCHC 34.5 g/dl (32.0-35.9); MEAN CELL VOLUME 90.6 fl (80-96); MEAN PLT VOLUME 7.7 fl (7.5-11.1); MONO % 6.3 % (3.8-10.2); NEUT % 64.7 % (42.8-82.8); PLATELET COUNT 456 K/MM3 (134-434); RBC 5.39 M/mm3 (4.00-5.60); RDW 12.8 % (11.9-15.9); WHITE BLOOD COUNT 11.3 K/mm3 (4.0-10.0)
[2021-01-20 19:22] LABS: POTASSIUM 4.2 mmol/L (3.5-5.1)
[2021-01-20 19:24] LABS: CALCIUM 9.6 mg/dL (8.5-10.1)
[2021-01-20 19:25] LABS: BLOOD UREA NITROGEN 9.8 mg/dL (7-18)
[2021-01-20 19:28] LABS: CREATININE 0.9 mg/dL (0.55-1.3)
[2021-01-20 19:29] LABS: BILIRUBIN,TOTAL 0.6 mg/dL (0.2-1)
[2021-01-20 20:19] LABS: EPI CELLS 2 /uL (0-25.1); HYALINE CASTS 1 /uL (0-3.1); PH,URINE 5.5 (5.0-8.0); URINE APPEARANCE CLEAR; URINE BACTERIA 91 /uL (0-1359); URINE BILIRUBIN 1+ (NEGATIVE); URINE COLOR DK YELLOW; URINE GLUCOSE (UA) NEGATIVE (NEGATIVE); URINE KETONE TRACE (NEGATIVE); URINE LEUK ESTERASE NEGATIVE (NEGATIVE); URINE NITRITE NEGATIVE (NEGATIVE); URINE PROTEIN 2+ (NEGATIVE); URINE RBC 34 /uL (0-23.9); URINE WBC 4 /uL (0-25.8)
[2021-01-20 23:37] VITALS: BP 116/83; PULSE 81
== END 2021-01-21 00:07 | disposition home or self-care (01) ==
LOC: JER 17:08
PROC: 3E0333Z Introduction of Anti-inflammatory into Peripheral Vein, Percutaneous Approach (ICD-10-PCS; principal; 2021-01-20)
PROC: 3E03329 Introduction of Other Anti-infective into Peripheral Vein, Percutaneous Approach (ICD-10-PCS; 2021-01-20)
PROC: 3E03329 Introduction of Other Anti-infective into Peripheral Vein, Percutaneous Approach (ICD-10-PCS; 2021-01-20)
PROC: 3E0337Z Introduction of Electrolytic and Water Balance Substance into Peripheral Vein, Percutaneous Approach (ICD-10-PCS; 2021-01-20)
DX: K57.92 Diverticulitis of intestine, part unspecified, without perforation or abscess without bleeding (principal); R10.32 Left lower quadrant pain
CPT/HCPCS: 36415; 74176-TC; 80053; 81003; 83690; 85025; 99285-25; J0131

== ENCOUNTER 2023-09-27 04:46 | Day surgery (SDC) | payer BC, OTHER ==
[2023-09-23 14:47] VITALS: BMI 29.5
[2023-09-27 10:09] VITALS: TEMP 98
[2023-09-27 10:42] VITALS: BP 102/50; PULSE 70; RESP 16
== END 2023-09-27 10:51 | disposition home or self-care (01) ==
LOC: JASU-ENDO 04:46
PROVIDERS: ATTEND Internal Medicine Gastroenterology
PROC: 0DJD8ZZ Inspection of Lower Intestinal Tract, Via Natural or Artificial Opening Endoscopic (ICD-10-PCS; principal; 2023-09-27 09:15)
DX: Z12.11 Encounter for screening for malignant neoplasm of colon (principal); K64.8 Other hemorrhoids; Z86.010 Personal history of colon polyps